=== PATIENT | female | born 1970 | race Caucasian/White ===

== ENCOUNTER → 2025-05-04 | Outpatient (CLI) | payer OTHER, SELFPAY ==
--- NOTE | 2025-05-04 09:50 | MRI_ITS ---
PROCEDURE: LOWER EXT/JT ONLY/W CONTRAST 05/04/2025 REASON FOR EXAM: PAIN RT HIP TECHNIQUE: T1, T2, LOWER EXT/JT ONLY/W intra-articular CONTRAST CONTRAST: Dose not reported COMPARISON: None FINDINGS: Bone marrow and osseous structures: There is no abnormal marrow edema to suggest stress reaction or fracture. There is no MR evidence of avascular necrosis. Articular cartilage: No significant joint space narrowing. There is a 0.8 x 0.5 cm developing cartilage defect with fissure component in the superior central acetabular articular cartilage. Subcortical cyst formation is noted in the anterior acetabulum. Labrum: There is a full-thickness tear of the anterior superior labrum with a 1.1 x 0.5 by 0.8 cm paralabral cyst. There is a full-thickness tear of the posterior superior labrum. Hip joint: There is no intra-articular body. The ligamentum teres is unremarkable. Hip abductors: The gluteus medius and minimus tendons show moderate distal tendinopathy without full-thickness tear or retraction, with increased fluid in the overlying bursa, with bursitis. Iliopsoas tendon: Intact without tendinosis or tear. No iliopsoas bursitis. MRI/Lower Ext/Jt Only/W Contrast IMPRESSION: There is a 0.8 x 0.5 cm developing cartilage defect with fissure component in t he superior central acetabular articular cartilage. Subcortical cyst formation is noted in the anterior acetabulum. There is a full-thickness tear of the anterior superior labrum with a 1.1 x 0.5 by 0.8 cm paralabral cyst. There is a full-thickness tear of the posterior superior labrum. The gluteus medius and minimus tendons show moderate distal tendinopathy withou t full-thickness tear or retraction, with increased fluid in the overlying bursa, with bursitis. Reading Location: [facility]
[2025-05-04] MEDS: Lidocaine 2% (5ml sdv) 5 ML VIAL.MPF INFILT (10:26)
[2025-05-04] MEDS: Gadoterate Meglumine Diluted 10 ML, Iopamidol 5 ML, Lidocaine 1% (20 ml mdv) 5 ML, Epin... INTRAARTIC (10:33)
[2025-05-04] MEDS: Iopamidol 10 ML in Syringe 1 EACH 600 ML INTRAARTIC (10:33)
--- NOTE | 2025-05-04 10:50 | PCM.OPRPT ---
Problems Associated Problem List Diagnoses (1) Hip pain, right: Multi Select Codes Radiology Rad Xray Procedures: 27002 Arthrogram Hip and [id number] Fluoroscopic guidance for needle placement Operative Report (Standard) Operative Information Date of Procedure: 05/04/25 Pre-Operative Diagnosis: Right hip pain Post-Operative Diagnosis: Right hip pain Surgery/Procedure Performed: Fluoroscopic guided right hip arthrogram construction laborer: No Type of Anesthesia: Local Procedure Start Time: 10:23 Procedure Stop Time: 10:34 Select all DRAINS/GRAFTS/IMPLANTS that apply: None Estimated Blood Loss: 0 Specimen collected: No Description of surgery: PROCEDURE: Arthrogram- right hip ORDERING PROVIDER: Dr. Lopez INDICATION: Female, 54 years old. Right hip pain. PROVIDER: RUSS Hutchins FLUOROSCOPY TIME: 1 minutes/15 seconds. 18.1 mGy CONSENT: The procedure as well as the benefits and possible complications including bleeding and infection were explained to the patient. Informed consent was obtained. TECHNIQUE: The patient was positioned supine. The overlying skin was prepped and draped in the usual sterile fashion. Following injection of local anesthetic with 2% lidocaine, a 22-gauge spinal needle was positioned under radiographic fluoroscopic localization. Approximately 2 cc of Isovue 300 instilled for localization purposes. Following this, 10 cc of arthrogram contrast (gadoterate, iopamidol, lidocaine, and epinephrine), compounded by pharmacy, was injected. All elements of maximal sterile barrier technique followed. Patient tolerated procedure well. There were no immediate complications. The procedure was proctored by Dr. Conrad. IMPRESSION: Successful fluoroscopic guided right hip arthrogram. Surgical Findings: None Complications Complications: No
== END | disposition home or self-care (01) ==
PROVIDERS: PCP Nurse Practitioner Primary Care; Referring Provider Physician Assistant Surgical; Visit Provider Student in an Organized Health Care Education/Training Program
DX: N28.9 Disorder of kidney and ureter, unspecified (principal); M25.551 Pain in right hip
CPT/HCPCS: 27093; 73722; 77002; Q9967